=== PATIENT | male | born 1970 | race Caucasian/White ===

== ENCOUNTER 2019-05-11 01:46 | Inpatient (IN) ==
[2019-05-11] MEDS ORDERED: SOLU-MEDROL IV ONE (02:20)
[2019-05-11] MEDS ORDERED: PEPCID IV ONE (02:20)
[2019-05-11] MEDS ORDERED: SODIUM CHLORIDE 0.9% INJ ONE (02:20)
[2019-05-11] MEDS ORDERED: BENADRYL IV ONE (02:20)
--- NOTE | 2019-05-11 03:06 | PROVIDER DOCUMENTATION ---
This chart was entered by Amna Reid Scribe, acting as scribe for Ya Nova MD. HPI-EENT General - General Stated Complaint: SOB/SWOLLEN THROAT Time Seen by Provider: 05/11/19 02:01 Source: patient Allergies/Adverse Reactions: Patient Allergies Allergy/AdvReac Type Severity Reaction Status Date / Time No Known Allergies Allergy Verified 05/11/19 02:38 - History of Present Illness-EENT General Nature of Presenting Problem: 48 y/o male presents to ED with throat swelling, sore throat, and difficulty swallowing onset 3 days ago and worsening tonight. Pt is alert and oriented. EENT Location: reports: throat Quality of Pain: reports: aching Severity: reports: moderate Onset/Duration: reports: 3 days ago Timing: reports: still present, getting worse Prearrival Treatment: Initiated no prearrival treatment Associated Symptoms: reports: sore throat, other (throat swelling; difficulty s wallowing) Locality of Occurance: Home Similar Symptoms Previously?: No Recently seen or treated by another doctor?: No - Throat/Dental Throat/Dental Problem Symptoms: reports: sore throat, throat swelling, unable to swallow Recently seen a dentist or have an appointment?: No Review of Systems - Adult - REVIEW OF SYSTEMS - ADULT Constitutional: denies: chills, fever Eyes: reports: no symptoms reported Ears, Nose, Mouth & Throat: reports: throat pain, throat swelling, other (difficulty swallowing) Cardiovascular: denies: chest pain, palpitations Respiratory: denies: cough, shortness of breath Gastrointestinal: denies: abdominal pain, diarrhea, nausea, vomiting Genitourinary: reports: no symptoms reported Musculoskeletal: denies: back pain, joint pain Integumentary: reports: no symptoms reported Neurological: denies: dizziness/vertigo, seizure Psychiatric: reports: no symptoms reported Endocrine: reports: no symptoms reported Hematologic/Lymphatic: reports: no symptoms reported Allergic/Immunologic: reports: no symptoms reported All Other Systems: Reviewed and Negative Past History - Adult - PAST MEDICAL HISTORY-ADULT Review of Records: reports: Old Records Reviewed, Nursing Assessment Review, Medications Reviewed Major Childhood Illnesses: reports: denies history - PRIOR SURGERIES/PROCEDURES Surgical/Procedure History: reports: none - IMMUNIZATION STATUS Childhood Immunizations: See Nurse Assessment Flu Vaccine: See Nurse Assessment - FAMILY HISTORY Family History: reviewed, not pertinent - SOCIAL HISTORY Smoking: non-smoker Substance Use: none/never Alcohol Use Frequency: never Living Situation: family Physical Exam- EENT - Physical Exam EENT Initial Vital Signs Reviewed: Yes General Appearance: appears well, alert, no apparent distress Eye Exam: bilateral eye: normal inspection, PERRL Ear Exam: bilateral ear: auricle normal, canal normal, TM normal Nasal Exam: normal inspection Throat Exam: other (erythema, swelling, and tenderness of upper palate; pharyngeal erythema. Pharynx partially obstructed due to swelling.) Neck: non-tender, full range of motion Respiratory: chest non-tender, lungs clear, normal breath sounds, no respiratory distress. negative: stridor Cardiovascular: normal peripheral pulses, regular rate, rhythm Abdominal Exam: normal bowel sounds, non tender, soft Back Exam: normal inspection, no CVA tenderness, no vertebral tenderness Extremity: normal range of motion, non-tender, normal gait Integumentary: normal color, warm/dry Neurologic: grossly normal Psych/Mental Status: normal mood/affect, normal thought content, normal thought process, oriented x 3 Progress - PLAN OF CARE/RESULTS Progress/Plan/Lab Results: Vital Signs - 8 hr 05/11/19 01:52 Temperature 99.1 F Pulse Rate 103 H Respiratory Rate 20 Blood Pressure 133/83 O2 Sat by Pulse Oximetry 96 05/11/19 02:47 Group A Strep Rapid Antigen - Final Throat Laboratory Results - last 24 hr 05/11/19 05/11/19 02:47 02:47 WBC 16.72 H RBC 5.27 Hgb 14.7 Hct 44.1 MCV 83.7 MCH 27.9 MCHC 33.3 RDW Std Deviation 13.2 Plt Count 387 MPV 10.2 Immature Gran % (Auto) 0.5 Neut % (Auto) 70.7 Lymph % (Auto) 19.3 L [place] % (Auto) 7.6 Eos % (Auto) 1.4 Baso % (Auto) 0.5 Immature Gran # (Auto) 0.09 H Neut # (Auto) 11.82 H Lymph # (Auto) 3.23 [place] # (Auto) 1.27 H Eos # (Auto) 0.23 Baso # (Auto) 0.08 Sodium 139 Potassium 3.7 Chloride 100 Carbon Dioxide 26 Anion Gap 13 BUN 11 Creatinine 0.8 Estimated GFR/1.73 m2 > 60 BUN/Creatinine Ratio 14 Glucose 113 H Calculated Osmolality 278 Calcium 9.8 Total Bilirubin 0.23 AST 18 ALT 30 Alkaline Phosphatase 138 H Total Protein 8.0 Albumin 4.3 Globulin 3.7 Albumin/Globulin Ratio 1.2 Orders Category Date Time Status Cardiac Monitoring DIRECTED Care 05/11/19 03:44 Active IV Insertion ORDERED Care 05/11/19 03:44 Completed Notify MD of + Sepsis Screen NOW Care 05/11/19 03:44 Active Notify Physician As Ordered Care 05/11/19 03:44 Active Saline Loc DIRECTED Care 05/11/19 02:19 Active CHEST-1 VIEW [RAD] Stat Exams 05/11/19 03:[address] NECK W/CONTRAST [CT] Stat Exams 05/11/19 02:19 Taken BLOOD CULTURE [BLDCUL] Stat Lab 05/11/19 03:56 Ordered CBC WITH ELECTRONIC DIFF [HEME] Stat Lab 05/11/19 02:47 Completed CK PROFILE [SP CHEM] Stat Lab 05/11/19 03:56 Ordered CMP [COMPREHENSIVE METABOLIC PANEL] [CHEM] Stat Lab 05/11/19 02:47 Completed DIRECT STREP Stat Lab 05/11/19 02:47 Completed LACTATE, PLASMA [CHEM] Lab 05/11/19 03:45 Uncollected LACTATE, PLASMA [CHEM] Lab 05/11/19 06:45 Uncollected LACTATE, PLASMA [CHEM] Lab 05/11/19 09:45 Uncollected LACTATE, PLASMA [CHEM] Stat Lab 05/11/19 03:30 Received PROTIME WITH INR [COAG] Stat Lab 05/11/19 03:56 Ordered PTT [COAG] Stat Lab 05/11/19 03:56 Ordered TROPONIN T Stat Lab 05/11/19 03:56 Ordered URINALYSIS W/POSS RFLX CULT [URINALYSIS] Stat Lab 05/11/19 03:44 Uncollected URINE DRUG SCREEN Stat Lab 05/11/19 04:11 Uncollected Clindamycin 600 mg/Ns Med 05/11/19 03:35 Discontinued 600 mg in 50 ml IV NOW Diphenhydramine [Benadryl] Med 05/11/19 02:20 Discontinued 50 mg IV NOW ONE Famotidine [Pepcid] Med 05/11/19 02:20 Discontinued 20 mg IV NOW ONE Methylprednisolone Sod Succ [Solu-Medrol] Med 05/11/19 02:20 Discontinued 125 mg IV NOW ONE Sodium Chloride 0.9% Med 05/11/19 02:20 Discontinued 5 - 10 ml INJ NOW ONE Oxygen Device Stat Oth 05/11/19 03:44 Active Result Diagrams: 05/11/19 02:47 05/11/19 02:47 - CT/MRI 1 CT Study: Neck Impression: See EMR Report (significant pharyngeal hypertrophy with narrowing of the airway, associated uvular edema. Suspect developing retropharyngeal abscessess, left larger than right) - CONSULTS/PCP/HOSPITALIST Notification #1 *Consult/PCP/Hospitalist*: ENT Time Discussed: 04:13 (Clindaymycin, steroids, UDS and will see patient in consu lt with admission to hospitalist) #2 Consult: Dr brock Time Discussed: 04:14 Consult Disposition: Admit Departure - Departure Date of Disposition Decision: 05/11/19 Time of Disposition Decision: 04:12 DIAGNOSIS: Retropharyngeal abscess Disposition: ADMITTED INPATIENT 09 Certified Medical Emergency: Emergent Condition: Stable Referrals and Follow-Ups: None,PCP [Primary Care Provider] - - Critical Care Note This patient required my direct & personal management of CC.: Yes Attestation - Physician/ [id number] Attestation Patient care was provided by Advanced Practice Provider:: No The physician spent face to face time with patient:: Yes Advanced Practice Provider documentation review:: Supervising physician onsite and consulted in the evaluation and care of this patient. The physician did have a face to face encounter with the patient. This chart was documented by the indicated scribe, (Amna Reid Scribe) and accurately reflects the services I performed and decisions made by me, Ya Nova MD, as attested by the provider's signature.
[2019-05-11 03:19] LABS: BASO# 0.08 X1000 (0.0-0.2); BASO% 0.5 % (0.0-0.8); EOS# 0.23 X1000 (0.0-0.7); EOS% 1.4 % (0.0-10.0); HEMATOCRIT 44.1 % (42.0-52.0); HEMOGLOBIN 14.7 g/dL (14.0-18.0); IMM GRAN# 0.09 X1000 (0.0-0.04); IMM GRAN% 0.5 % (0.0-0.5); LYMPH# 3.23 X1000 (1.2-3.4); LYMPH% 19.3 % (20.5-51.1); MCH 27.9 PG (27-31); MCHC 33.3 g/dL (33-37); MCV 83.7 FL (81-99); MONO# 1.27 X1000 (0.11-0.59); MONO% 7.6 % (1.7-9.3); MPV 10.2 FL (7.4-10.4); NEUT# 11.82 X1000 (1.4-6.5); NEUT% 70.7 % (42.2-75.2); PLT 387 X1000 (130-400); RBC 5.27 XMIL (4.7-6.1); RDW 13.2 % (11.5-14.5); WBC 16.72 X1000 (4.8-10.8)
[2019-05-11] MEDS ORDERED: CLINDAMYCIN 600 MG/NS 600 MG/50 ML IVPB IV ONE (03:35)
[2019-05-11 03:46] LABS: AGAP 13; ALB/GLOB RATIO 1.2; ALBUMIN 4.3 g/dL (3.5-5.0); ALKALINE PHOSPHATASE 138 U/L (32-122); BUN 11 mg/dL (8-22); CALCIUM 9.8 mg/dL (8.8-10.2); CHLORIDE 100 mmol/L (98-107); COSMO 278; CREATININE 0.8 mg/dL (0.7-1.2); ESTIMATED GFR > 60; GLUCOSE 113 mg/dL (70-104); GOT 18 U/L (10-34); GPT 30 U/L (10-44); POTASSIUM 3.7 mmol/L (3.5-5.1); SODIUM 139 mmol/L (136-145); TCO2 26 mmol/L (25-35); TOTAL BILIRUBIN 0.23 mg/dL (0.20-1.00)
[2019-05-11 04:31] LABS: INR 0.92; PROTIME 13.2 Seconds (11.0-16.0)
[2019-05-11 04:32] LABS: PTT 36.2 Seconds (22.3-41.8)
[2019-05-11 05:17] LABS: URINE SOURCE CLEAN CATCH
[2019-05-11 05:41] LABS: UR AMPHETAMINES QUAL PRESUMPTIVE POSITIVE (NONE DETECT); UR BARBITUATES QUAL NONE DETECTED (NONE DETECT); UR BENZODIAZEPIN QUAL NONE DETECTED (NONE DETECT); UR CANNABINOIDS QUAL NONE DETECTED (NONE DETECT); UR COCAINE QUAL NONE DETECTED (NONE DETECT); UR METHADONE QUAL NONE DETECTED (NONE DETECT); UR OPIATES QUAL NONE DETECTED (NONE DETECT); UR OXYCODONE QUAL NONE DETECTED (NONE DETECT); UR PCP QUAL NONE DETECTED (NONE DETECT)
[2019-05-11 06:03] LABS: UR EPITHELIAL CELLS <10 /HPF (<10); URINE BACTERIA NEGATIVE /HPF; URINE RBC <10 /HPF (<10); URINE WBC <10 /HPF (<10)
[2019-05-11 06:04] LABS: BILIRUBIN URINE NEGATIVE (NEGATIVE); BLOOD URINE NEGATIVE (NEGATIVE); COLOR YELLOW; GLUCOSE URINE NEGATIVE (NEGATIVE); KETONE URINE NEGATIVE (NEGATIVE); LEUKOCYTES URINE NEGATIVE (NEGATIVE); NITRITE URINE NEGATIVE (NEGATIVE); PH URINE 6.5; PROTEIN URINE TRACE mg/dL (NEGATIVE); TURBIDITY URINE CLEAR (CLEAR); UROBILINOGEN URINE NORMAL (NORMAL)
--- NOTE | 2019-05-11 07:54 | Diag Imaging Result Doc PS360 ---
EXAM: CT NECK W/CONTRAST 05/11/2019 HISTORY: difficulty swallowing TECHNIQUE: This exam was performed using automated exposure control, adjustment of mA or kV according to patient size, and/or use of iterative reconstruction technique. COMMENT: There is minimal apical pleural fibrosis. There are emphysematous changes in the right apex. The thyroid gland is unremarkable. The nasopharynx is unremarkable. There is mucosal thickening in the right maxillary sinus. There is enlargement of the palatine tonsils with abnormal lucencies bilaterally. On the right side this measures 11 mm in greatest dimension. On the left this measures almost 17 mm in greatest dimension. The pharynx is considerably constricted at this location. There is soft tissue swelling on the left side of the pharynx extending to the area epiglottic fold. The epiglottis is not enlarged. The larynx is normal in appearance. There is nonspecific adenopathy in the jugular chains bilaterally. Both jugulodigastric nodes are enlarged with the left side measuring almost 19 mm in AP dimension. There are enlarged spinal accessory nodes bilaterally measuring up to 12 mm. The salivary glands are symmetrical in appearance. IMPRESSION: Bilateral palatine tonsillitis with abscess, worse on the left than the right. Reactive adenopathy bilaterally. Chronic right maxillary sinusitis. Electronically signed by Alessio Katz 05/11/2019 7:51 AM
--- NOTE | 2019-05-11 08:02 | Diag Imaging Result Doc PS360 ---
EXAM: CHEST-1 VIEW 05/11/2019 HISTORY: sepsis protocol TECHNIQUE: AP portable at 0354 COMMENT: There is no evidence of acute cardiac or pulmonary disease. There are no previous studies available for comparison. IMPRESSION: No acute disease. Electronically signed by Alessio Katz 05/11/2019 8:00 AM
[2019-05-11] MEDS ORDERED: CLINDAMYCIN 300 MG in NS 50 ML IV ONE (08:10)
[2019-05-11] MEDS ORDERED: PENICILLIN POTASSIUM IV ONE (08:10)
[2019-05-11] MEDS ORDERED: NS IV ONE (08:10)
[2019-05-11] MEDS ORDERED: DECADRON IV ONE (08:15)
[2019-05-11] MEDS ORDERED: ZOFRAN IV PRN (08:47)
[2019-05-11] MEDS ORDERED: OFIRMEV 1000 MG/ISOTONIC SOLN 1,000 MG/100 ML BOTTLE IV PRN (08:47)
[2019-05-11] MEDS ORDERED: ROCEPHIN 2 GM in NS 50 ML IV ONE (09:00)
[2019-05-11] MEDS: NS 1,000 ML IV SCH ×2 (09:40→19:57)
--- NOTE | 2019-05-11 09:55 | CONSULTATION ---
DATE OF CONSULTATION: 05/11/2019 HISTORY OF PRESENT ILLNESS: This 48-year-old gentleman was admitted with upper airway swelling and CT that was read as developing "retropharyngeal abscess" in the impression. In the body of the report, it was described as peritonsillar abscess. He has had an increasing sore throat for the past few days, severe odynophagia and dysphagia. He is also snoring quite loudly. When he is awake, he has a normal airway and breathing. PHYSICAL EXAMINATION: HEENT: Severe bilateral tonsil swelling. The right peritonsillar area is soft to palpation. The left peritonsillar area is more firm to palpation than the right. The tongue is normal. Posterior pharyngeal wall is normal. Neck: Bilateral tenderness and adenopathy. IMPRESSION: Severe tonsillitis, clinically with probably left peritonsillar abscess. By CT, there is a bilateral peritonsillar abscess to my review, the left larger than the right. On exam, I do not feel that the left abscess is amenable to drainage at the bedside with needle aspiration. Also by CT of the larynx, the laryngeal airway is normal. RECOMMENDATIONS: 1. I would continue medical treatment for now. He may need tonsillectomy at some point and would like to treat with medications for now. 2. He has received 600 mg of IV clindamycin. We will add 300 mg of clindamycin to that to give a total of 900 mg IV. We will add Rocephin 2 g. As he is admitted, we will continue antibiotics per Dr. Mckeon. We will also add 10 mg dose of Decadron. 3. We will follow for improvement and consider tonsillectomy or drainage of the abscess if not improving on medications. cc: Benji Vaughn MD
[2019-05-11] MEDS: SOLU-MEDROL IV SCH ×2 (11:04→19:57)
--- NOTE | 2019-05-11 13:09 | PROGRESS NOTE ---
DATE: 05/11/2019 INTERVAL HISTORY: Mr. Hu was admitted for peritonsillar abscess. ENT had evaluated him and had recommended medical therapy. Currently, patient is denying any new complaints. He states that he has been having dysphagia, odynophagia, mild shortness of breath, fever and chills at home. He is feeling slightly better. He wants to eat something. ENT had evaluated the patient, and recommended medical management. VITAL SIGNS: Afebrile with temperature of 97.6 degrees, pulse 80, respiratory 21, blood pressure 124/66, and saturating 97% on room air. PHYSICAL EXAMINATION: General: Does not appear in any acute distress. HEENT: Oral cavity is moist. He has bilateral tonsillitis. I could not see any reasonable abscess, though there is a pus point on the left tonsil. There is mild pharyngeal congestion. The oropharynx appears to have narrowed. There is no cervical lymphadenopathy. Lungs: Air entry bilaterally equal. No wheezing, rhonchi, or crackles. Cardiovascular: S1, S2 normal. No murmur or gallop. Abdomen: Soft, nontender. Extremities: No lower extremity edema. He does not appear to be in respiratory distress. LABORATORY: He does have leukocytosis. Normal kidney function. Urine toxicology positive for amphetamine. Blood cultures are pending. Group A streptococcal rapid antigen was negative. ASSESSMENT AND PLAN: 1. Sepsis due to predominantly left-sided peritonsillar abscess. Continue intravenous ceftriaxone and intravenous clindamycin. Follow up blood culture results. Continue intravenous steroids. I will follow up with hemoglobin A1c. ENT on board. He or may not need tonsillectomy depending on his course. However, currently recommend medical management. 2. Tobacco use disorder. Continue nicotine patch. 3. Disposition: I will continue to monitor patient in ICU for 24 hours considering his airway on exam appears narrowed, though he is not in respiratory distress. Plan of care discussed with nursing team and the patient. Their questions have been answered. cc: Agusto Cheung MD
[2019-05-11] MEDS: NICODERM PATCH TD PRN (14:08)
[2019-05-11] MEDS: PEPCID IV SCH (15:10)
[2019-05-11] MEDS: SODIUM CHLORIDE 0.9% INJ SCH (15:10)
[2019-05-11] MEDS: CLINDAMYCIN 600 MG/NS 600 MG/50 ML IVPB IV SCH (17:11)
[2019-05-12] MEDS: CLINDAMYCIN 600 MG/NS 600 MG/50 ML IVPB IV SCH ×3 (01:20→16:39)
--- NOTE | 2019-05-12 01:34 | EKG Report ---
Test Performed on : 05/12/2019 01:09:17 AM Test Reason : noticed a change in rhythm Blood Pressure : / mmHG Vent. Rate : 085 BPM Atrial Rate : 085 BPM P-R Int : 156 ms QRS Dur : 100 ms QT Int : 394 ms P-R-T Axes : 061 020 039 degrees QTc Int : 468 ms Normal sinus rhythm. Septal infarct , age undetermined Abnormal ECG No previous ECGs available Unconfirmed Result
[2019-05-12] MEDS: MORPHINE IV PRN ×3 (01:45→11:56)
[2019-05-12] MEDS: SOLU-MEDROL IV SCH (03:54)
[2019-05-12] MEDS: PEPCID IV SCH ×2 (03:55→16:40)
[2019-05-12 06:01] LABS: HEMOGLOBIN A1C 5.6 % (4.8-6.0)
--- NOTE | 2019-05-12 07:14 | HISTORY AND PHYSICAL ---
PRIMARY CARE PHYSICIAN: The patient does not have a primary care provider. CHIEF COMPLAINT: Tongue swelling and sore throat. HISTORY OF PRESENT ILLNESS: Mr. Hu is a 48-year-old male with no known past medical history. He reports that for approximately 2 days that he has had a sore throat though this did progressively get worse over the past 2 days. He now is reporting that he is feeling like his throat is swollen, and that his tongue is swollen. He feels as though at times he is having difficulty swallowing, and has reported some feeling that due to his throat swelling that he is having some difficulty breathing. Though he states this is related to his throat swelling he feels, that he is not feeling short of breath as though like he can't catch his breath. The patient states that the swelling is worse on the left side. He also has some tenderness on this side as well. He has reported some fever and chills also. The patient denies recently being sick, any recent travel, or being around anyone with similar symptoms. The only thing that he reported is that approximately a week ago while at work he got too hot. He did have what sounds like heat exhaustion. He states that since that time that he does still not feel good, and has not gotten all of his energy back. He has been tired and fatigued. At this time, he denies any headache. He denies any dizziness. He denies any chest pain. He reports some shortness of breath as previously mentioned, but denies any cough. He denies any abdominal pain, nausea, vomiting, or diarrhea. He denies any dysuria or urinary frequency. He denies any pain, numbness, tingling or swelling in extremities. Upon evaluation in the ER, the patient does have some obvious swelling noted to his tongue, the left side of his neck, and submandibular area does appear to be more swollen than the right. They did perform a CT neck soft tissue with IV contrast which showed significant pharyngeal hypertrophy with narrowing of the airway associated with uvular edema. Radiologist noted to suspect developing retropharyngeal abscess on the left larger than the right. They also performed a chest x-ray, which did not show any acute abnormalities. The patient reported fever and chills. He had been afebrile since arrival. He only had documented temperature of 99.1 degrees, being the highest though he did have some leukocytosis with a white blood cell count of 16,720. The patient does report that he feels as though he has some swelling in his throat and is having some shortness of breath at times. He is resting in the ER stretcher. He was laying back sleeping upon my initial arrival to the room, was easily arousable with verbal stimulation. He was able to speak in full sentences. He has no stridor noted. Lung sounds are clear to auscultation in bilateral full hernandez, and oxygen saturations have been maintained in the high 90s on room air. He will be placed in ICU for close monitoring. REVIEW OF SYSTEMS: A 14 point review of systems was conducted with the patient. All were negative except for pertinent positives mentioned above in HPI. PAST MEDICAL HISTORY: The patient denies any current or previous medical problems. PAST SURGICAL HISTORY: 1. Appendectomy. 2. Dental surgery for which he states he had his teeth pulled though he denies any of this being recent dental abscesses or infections. SOCIAL HISTORY: The patient is a current every day smoker. He denies any alcohol or illicit drug use. FAMILY HISTORY: The patient states he does not know his biological family history though he is adopted. ALLERGIES: Patient reports allergies to coconuts. HOME MEDICATIONS: The patient denies any prescription or [id number] medication use. DIAGNOSTIC DATA: [place] [address], hemoglobin 14.7, hematocrit 44.1, and platelet count is 387,000. PT 13.2, INR 0.92, PTT is 36.2. Sodium 139, potassium 3.7, chloride 100, serum bicarb is 26, anion gap 13, BUN 11, and creatinine 0.8 with a GFR greater than 60. Glucose is 113. Calcium 9.8. Liver function tests within normal limits except for alkaline phosphatase is elevated at 138. CK 151. Troponin less than 0.01. Plasma lactate was 0.6. Urinalysis was obtained via clean catch, was positive for trace protein though was otherwise negative for glucose, ketones, blood, nitrites, leukocytes, white blood cells, or bacteria. Urine drug screen was positive for amphetamines. EKG showed normal sinus rhythm at a rate of 85 with a QTc of 468. Chest x-ray showed no acute abnormality as per Radiology. CT soft tissue neck with IV contrast showed significant pharyngeal hypertrophy with narrowing of the airway associated with uvular edema. There is also bilateral moderate cervical and submandibular lymphadenopathy. Radiologist noted to suspect developing retropharyngeal abscess on the left larger than the right. PHYSICAL EXAMINATION: VITAL SIGNS: Temperature was 99.1, heart rate 85, respirations 18, blood pressure 135/80 and oxygen saturation is 98% on room air. GENERAL: Mr. Hu is a pleasant 48-year-old male who was resting in the ER stretcher with his eyes closed upon my arrival to the room that was easily arousable with verbal stimulation. Once awoken, he was alert and oriented to person, place, time, and situation. HEENT: Head is atraumatic, normocephalic. Pupils are equal, round, reactive to light, and were 3 mm bilaterally and brisk. Oral mucosa was moist. The patient does have some swelling noted to his tongue. He also does have some uvular swelling as well. He does appear to have some swelling to the left side of his neck, and does have some enlarged lymph nodes bilaterally though this is worse on the left neck and left submandibular area upon palpation. He also reports tenderness as well which is worse on the left also. NECK: Supple. Trachea midline. There is no stridor noted. CARDIOVASCULAR: The patient has S1-S2 present. No murmurs, gallops, or rubs appreciated with a regular rate and rhythm. PULMONARY: The patient has symmetrical chest expansion bilaterally. Lung sounds are clear to auscultation in bilateral full hernandez. ABDOMEN: Soft, nontender, and nondistended. Bowel sounds are present in all 4 quadrants and were normoactive. EXTREMITIES: No cyanosis clubbing or edema noted. Pulse, motor, and sensory is intact in all extremities. Radial pulses and pedal pulses were 3+ bilaterally. INTEGUMENTARY: The patient's skin is pink, warm, and dry. NEUROLOGICAL: The patient is alert and oriented to person, place, time, and situation. He is moving all extremities. There are no focal neurological deficits noted. ASSESSMENT AND PLAN: 1. Pharyngeal hypertrophy with uvular edema and possible retropharyngeal abscesses. For further treatment and evaluation for this, we will place the patient NPO at this time. He will be placed in ICU for close monitoring given that he does have narrowing of the airway noted, and is reporting some shortness of breath. He will be on continuous cardiac telemetry and pulse oximetry. He was previously in the ER, and treated with IV clindamycin, Solu-Medrol 125 mg IV, Pepcid 20 mg IV and Benadryl 50 mg IV. At this time, we will continue with Solu-Medrol 60 mg IV q.8 hours. We will continue with Pepcid 20 mg IV q.12 hours as well, and have placed the patient on antibiotic coverage of clindamycin 600 mg IV q.8 hours. We will provide some gentle fluid hydration with normal saline at 100 mL/h. We have placed p.r.n. orders for pain medicine and antiemetics if needed. We have consulted ENT specialist of Dr. Vaughn. We will await his evaluation and further recommendations for management. 2. Nicotine dependence. We will mortgage loan counselor the patient on the importance of smoking cessation throughout his admission upon discharge. We have placed p.r.n. orders for a nicotine patch if needed. 3. Deep vein thrombosis prophylaxis provided with SCD's. We will hold any anticoagulants until he is evaluated by Dr. Vaughn in case he requires surgical intervention. 4. The patient has been placed in ICU for close monitoring. We will continue with medications as mentioned above. Further orders and recommendations pending hospital course, diagnostic studies, and physician evaluation. Dictated by VITALIY Srivastava for Mendoza Mckeon MD cc: Mendoza Mckeon MD
[2019-05-12] MEDS ORDERED: ROCEPHIN 2 GM in NS 50 ML IV SCH (09:00)
[2019-05-12] MEDS ORDERED: DECADRON IV ONE (10:30)
--- NOTE | 2019-05-12 10:36 | PROGRESS NOTE ---
DATE: 05/12/2019 INTERVAL HISTORY: He was transferred to [facility]. Did not have any acute overnight events. He feels his voice is getting better. He still has some swallowing trouble. However, it is significantly better. He continues to have left-sided neck pain close to angle of jaw that we discussed about. OBJECTIVE: Vital Signs: Temperature 97.5 degrees, pulse 83, respiratory rate 18, blood pressure 120/68, saturating 96% on room air. General: Does not appear in any acute distress. HEENT: Oral cavity is moist. He still has bilateral tonsillar enlargement, and his tonsils are being pushed towards oropharynx, but his airway otherwise appears patent. There is decreased erythema around the soft palate and pharynx as compared to yesterday. He does have some tenderness over left angle of jaw. Lungs: Air entry bilaterally equal. No wheeze, rhonchi, or crackles. Cardiovascular: S1, S2 normal. No murmur or gallop. Abdomen: Soft, nontender. Extremities: No lower extremity edema. LABORATORY DATA: He does not have any CBC or BMP for today, which I have ordered for tomorrow. ENT had evaluated him and had recommended medical management. ASSESSMENT AND PLAN: 1. Sepsis due to bilateral and predominantly left-sided peritonsillar abscess. Continue intravenous ceftriaxone, intravenous clindamycin, and decrease intravenous steroid dose. His hemoglobin A1c was negative for diabetes mellitus. ENT on board, and depending on his course, would plan tonsillectomy. His airway currently appears patent. He does not have any oxygen requirement or shortness of breath or stridor. 2. Tobacco abuse and use disorder. Continue nicotine patch. 3. Disposition. I will transfer the patient to medical floor. Awaiting further ENT recommendation, and will plan discharge accordingly. Plan of care discussed with the patient and his at bedside. All of their questions have been answered. cc: Agusto Cheung MD
--- NOTE | 2019-05-12 13:26 | PROGRESS NOTE ---
DATE: 05/12/2019 SUBJECTIVE: The patient is seen and examined today. He is much improved from admission. He is tolerating a regular diet. His pain has resolved on the right side. He is still having some pain on the left side. OBJECTIVE: On physical exam, the oral cavity and oropharynx are much more normal. The tonsils are much less inflamed. Palpation of the right side is normal. Palpation of the left peritonsillar area is still firm, but it is not near as bad as it was on admission. IMPRESSION: Bilateral peritonsillar abscesses. The right has resolved. The left abscess is probably still present, but is much improved. PLAN: We have discussed his plan of care both immediate and long-term. He may need tonsillectomy, but he is so much better, I would like to continue medical therapy for now. We will keep him as an inpatient through his last dose of clindamycin, which is at 5 o'clock this afternoon. After his last dose, he can be discharged and will follow up with me in the morning in my office at 8 o'clock. At that time, we will make a decision on whether there needs to be some intervention on the left tonsillar abscess. This morning, we will also give him 6 mg of the Decadron. Hopefully, this will resolve, but if it does not, we can manage this further from an outpatient standpoint, and if he needs tonsillectomy, we can arrange that as well. cc: Benji Vaughn MD
[2019-05-12] MEDS: NICODERM PATCH TD PRN (13:40)
[2019-05-12 15:39] VITALS: BP 127/64
[2019-05-12] MEDS: SODIUM CHLORIDE 0.9% INJ SCH (16:40)
[2019-05-12] MEDS ORDERED: SOLU-MEDROL IV SCH (18:00)
--- NOTE | 2019-05-13 10:41 | DISCHARGE SUMMARY ---
ADMISSION DATE: 05/11/2019 DISCHARGE DATE: 05/12/2019 DISCHARGE DISPOSITION: Home. DISCHARGE CONDITION: Hemodynamically stable. He complains of residual pain at the angle of left jaw, but it is better. He denies shortness of breath. His dysphagia is also better. DISCHARGE MEDICATIONS: Cefuroxime 250 mg every 12 hours, 8 tablets have been prescribed. DISCHARGE DIAGNOSES: 1. Sepsis due to bilateral peritonsillar abscess, predominantly on the left side. 2. Tobacco abuse. CONSULTATIONS DURING HOSPITAL ADMISSION: ENT, Dr. Vaughn. PHYSICAL EXAMINATION: Vital Signs: At the time of discharge, temperature 97.4 degrees, pulse 98, respiratory rate 18, blood pressure 130/76, saturating 98% on room air. HEENT: At the time of discharge, oral cavity is moist. He does have tonsils pushed towards oropharynx, with mild congestion and erythema. No pus that I could appreciate. He does have some tenderness over the left angle of jaw. However, his airway is patent. Lungs: Air entry bilaterally equal. No wheeze, rhonchi, crackles. He is breathing well on room air. Cardiovascular: S1, S2 normal. No murmur or gallop. Abdomen: Soft, nontender. Extremities: No lower extremity edema. LABORATORY DATA: Significant labs at the time of admission: WBC 16,000, hemoglobin 14.7, platelet 387,000. His electrolytes were normal with BUN 11, creatinine 0.8. MICROBIOLOGY: Significant microbiology during hospital admission: Blood culture so far has not shown any growth. He was advised to discuss the final results when he sees ENT doctor tomorrow. DISCHARGE INSTRUCTIONS: The patient was advised to quit smoking. He was also advised to follow up with ENT doctor tomorrow morning to see if he would need tonsillectomy. HOSPITAL COURSE SUMMARY: Mr. Hu is a 48-year-old man without any significant past medical history, who came in with chief complaints of tongue swelling and sore throat of about 2 days' duration. Associated with that, he also has left-sided neck pain, difficulty swallowing, and soreness in his throat. In the emergency room, he was found to have mild swelling of the tongue, especially left side of his neck, and some tenderness in the left submandibular area. He underwent CT scan, which had detected bilateral peritonsillar abscess, especially on the left. He was started on intravenous antibiotics. Blood cultures were collected, as well as intravenous steroids, and ENT was consulted. ENT had recommended continued intravenous antibiotics, and intravenous dexamethasone was given, and repeat ENT evaluation later on the next day. He had improvement in his symptoms, so ENT doctor team had decided to recommend discharge. He will be discharged on oral cefuroxime. At the time of discharge, his blood cultures still are negative, though the final results are not back yet. The patient has been feeling well on antibiotics. The patient was advised to discuss the final results with the ENT doctor. He is also advised to take antibiotics, and ENT doctor, after seeing him outpatient tomorrow, is going to decide if he would need definitive drainage of his abscess or tonsillectomy. TIME SPENT: More than 30 minutes were spent in discharging this patient. All of his questions have been answered. cc: Agusto Cheung MD MTDD
== END 2019-05-12 17:33 | disposition home or self-care (01) | DRG 872 ==
LOC: ED 01:46 → ICU 08:54 → SUATTDRO 08:54 → 3S 21:42 → 4N 05-12 10:13
PROVIDERS: ATTEND Internal Medicine
CPT/HCPCS: 70491; 71010; 71045; 80053; 80101; 80301; 80307; 80324; 80345; 80346; 80353; 80358; 80361; 80365; 81001; 82550; 83036; 83605; 83992; 84484; 85025; 85610; 85730; 87040; 87081; 87430; 93005; A9270; G0431; G0434; G0479; G0480; J0696; J1100; J1200; J2270; J2540; J2930; J7030; Q9967; S0028; S0077